=== PATIENT | male | born 1990 | race American Indian/Alaskan Native ===

== ENCOUNTER 2017-08-16 04:04 | Emergency (ER) | payer SELFPAY ==
[2017-08-16 04:11] VITALS: BP 111/82
[2017-08-16] MEDS ORDERED: ATROVENT IH ONE (04:26)
[2017-08-16] MEDS ORDERED: PROVENTIL IH ONE (04:26)
[2017-08-16] MEDS ORDERED: MAGNESIUM SULFATE 1 GM in NACL 0.9% 50 ML IV ONE (04:26)
--- NOTE | 2017-08-16 04:39 | Emergency Department Report ---
ED Asthma HPI - General Chief Complaint: Dyspnea/Respdistress Stated Complaint: NICOL Source: patient, EMS Mode of arrival: Stretcher Limitations: No Limitations - History of Present Illness Initial Comments: 27 year old male with a past medical history asthma presents to the Hospital complaining of shortness of breath and wheezing for the past 3 days. Patient ran out of his home nebulizer medication as well as his inhaler last night. Yesterday gas engine mechanic came to the scene and provided a breathing treatment. Patient felt better and therefore elected not to come to the hospital at that time. Symptoms worsened again today and patient received albuterol 5 mg and Solumderol 125 mg prior to arrival with some improvement. Wheezing persists upon arrival. Patient plays a cough occasional productive of mucus, complains of some mid thoracic pain, and denies fever. - Related Data Previous Rx's Medication Instructions Recorded Last Taken Type ALBUTEROL Inhaler [ProAir HFA 2 puff IH QID PRN #1 inha 08/16/17 Unknown Rx Inhaler] ALBUTEROL NEB's [Proventil 0.083% 2.5 mg IH TID PRN #1 box 08/16/17 Unknown Rx NEBS] predniSONE [Deltasone] 40 mg PO QDAY 5 Days tab 08/16/17 Unknown Rx Allergies Allergy/AdvReac Type Severity Reaction Status Date / Time No Known Allergies Allergy Verified 05/02/15 17:02 ED Review of Systems ROS: Stated complaint: NICOL Other details as noted in HPI Comment: All other systems reviewed and negative ED Past Medical Hx - Past Medical History Hx Asthma: Yes - Social History Smoking Status: Current Every Day Smoker Substance Use Type: None - Medications Home Medications: Home Medications Medication Instructions Recorded Confirmed Last Taken Type ALBUTEROL Inhaler [ProAir HFA 2 puff IH QID PRN #1 inha 08/16/17 Unknown Rx Inhaler] ALBUTEROL NEB's [Proventil 0.083% 2.5 mg IH TID PRN #1 box 08/16/17 Unknown Rx NEBS] predniSONE [Deltasone] 40 mg PO QDAY 5 Days tab 08/16/17 Unknown Rx ED Physical Exam - General Limitations: No Limitations - Other Other exam information: General: No limitations, patient is alert in no acute distress Head exam: Atraumatic, normocephalic Eyes exam: Normal appearance ENT: Moist mucous membrane, normal oropharynx Neck exam: Normal inspection, full range of motion, no meningismus nontender Respiratory exam: Lateral wheezing, no accessory muscle use, no tachypnea Cardiovascular: Normal rate and rhythm Abdomen: Soft, nondistended, and nontender, with normal bowel sounds, no rebound, or guarding Extremity: Full range of motion normal inspection no deformity, no calf tenderness or edema Back: Normal Inspection, full range of motion, no tenderness Neurologic: Alert, oriented x3, cranial nerves intact, no motor or sensory deficit Psychiatric: normal affect, normal mood Skin: Warm, dry, intact ED Course Vital Signs 08/16/17 08/16/17 08/16/17 04:08 04:10 04:37 Temperature 98.2 F Pulse Rate 103 H Pulse Rate [ 92 H Anterior Bilateral Throughout] Respiratory 18 18 Rate Respiratory 18 Rate [Anterior Bilateral Throughout] Blood Pressure 111/82 [Left] O2 Sat by Pulse 98 98 Oximetry 08/16/17 05:45 Temperature Pulse Rate Pulse Rate [ 101 H Anterior Bilateral Throughout] Respiratory Rate Respiratory 18 Rate [Anterior Bilateral Throughout] Blood Pressure [Left] O2 Sat by Pulse Oximetry - Reevaluation(s) Reevaluation #1: 08/16/17 04:58 Magnesium additional albuterol and Xopenex initiated Reevaluation #2: 08/16/17 05:50 pt feeling better nebs and Mag, tolerating walking without difficulty after 1/2 of treatment. Will finish current albuterol 7.5mg/atrovent 1 mg. Pt states he should be ready to go when treatment complete. Prepped for d/c and encouraged to fill his meds prior to going home so he will have them available. ED Medical Decision Making - Lab Data Result diagrams: 08/16/17 04:29 08/16/17 04:29 Lab Results 08/16/17 08/16/17 Range/Units 04:29 04:29 WBC 12.4 H (4.5-11.0) K/mm3 RBC 4.94 (3.65-5.03) M/mm3 Hgb 15.0 (11.8-15.2) gm/dl Hct 44.3 (35.5-45.6) % MCV 90 (84-94) fl MCH 30 (28-32) pg MCHC 34 (32-34) % RDW 13.4 (13.2-15.2) % Plt Count 244 (140-440) K/mm3 Lymph % (Auto) 19.3 (13.4-35.0) % Callaway % (Auto) 14.2 H (0.0-7.3) % Eos % (Auto) 3.8 (0.0-4.3) % Baso % (Auto) 0.6 (0.0-1.8) % Lymph # 2.4 (1.2-5.4) K/mm3 Callaway # 1.8 H (0.0-0.8) K/mm3 Eos # 0.5 H (0.0-0.4) K/mm3 Baso # 0.1 (0.0-0.1) K/mm3 Seg Neutrophils % 62.1 (40.0-70.0) % Seg Neutrophils # 7.7 (1.8-7.7) K/mm3 Sodium 139 (137-145) mmol/L Potassium 4.0 (3.6-5.0) mmol/L Chloride 101.5 (98-107) mmol/L Carbon Dioxide 27 (22-30) mmol/L Anion Gap 15 mmol/L BUN 10 (9-20) mg/dL Creatinine 1.0 (0.8-1.5) mg/dL Estimated GFR > 60 ml/min BUN/Creatinine Ratio 10 % Glucose 101 H (75-100) mg/dL Calcium 8.9 (8.4-10.2) mg/dL - EKG Data -: EKG Interpreted by Nm EKG shows normal: sinus rhythm, axis (qrs 109), QRS complexes (qrsd 106), ST-T waves (no steim/t inv) Rate: normal (91) - EKG Data When compared to previous EKG there are: previous EKG unavailable - Radiology Data Radiology results: report reviewed Read by radiologist: Chest x-ray PA and lateral: Hyperinflation no acute process - Medical Decision Making Acute asthma exacerbation. Improvement with each treatment. Will be discharged , nebs, inhaler, and prednisone. Outpatient follow-up will be encouraged - Differential Diagnosis asthma, bronchitis, pneumothorax, CHF Critical Care Time: No Critical care attestation.: If time is entered above; I have spent that time in minutes in the direct care of this critically ill patient, excluding procedure time. ED Disposition Clinical Impression: Acute asthma exacerbation Disposition: DC-01 TO HOME OR SELFCARE Is pt being admited?: No Does the pt Need Aspirin: No Condition: Stable Instructions: Asthma (ED) Additional Instructions: Take the medication as prescribed. Follow-up with your doctor or the doctor provided. Return if symptoms worsen as indicated by your discharge instructions. Prescriptions: ALBUTEROL Inhaler [ProAir HFA Inhaler] 2 puff IH QID PRN #1 inha PRN Reason: Shortness Of Breath ALBUTEROL NEB's [Proventil 0.083% NEBS] 2.5 mg IH TID PRN #1 box PRN Reason: Wheezing predniSONE [Deltasone] 40 mg PO QDAY 5 Days tab Referrals: PRIMARY CARE, [Primary Care Provider] - 3-5 Days [facility] [Provider Group] - 3-5 Days Time of Disposition: 06:00
[2017-08-16 04:41] LABS: Basophils # (Auto) 0.1 K/mm3 (0.0-0.1); Basophils % (Auto) 0.6 % (0.0-1.8); Eosinophils # (Auto) 0.5 K/mm3 (0.0-0.4); Eosinophils % (Auto) 3.8 % (0.0-4.3); Hematocrit 44.3 % (35.5-45.6); Lymphocytes # (Auto) 2.4 K/mm3 (1.2-5.4); Lymphocytes % (Auto) 19.3 % (13.4-35.0); Mean Corpuscular HGB Conc 34 % (32-34); Mean Corpuscular Hemoglobin 30 pg (28-32); Mean Corpuscular Volume 90 fl (84-94); Monocytes # (Auto) 1.8 K/mm3 (0.0-0.8); Monocytes % (Auto) 14.2 % (0.0-7.3); Platelet Count 244 K/mm3 (140-440); Red Blood Count 4.94 M/mm3 (3.65-5.03); Red Cell Distribution Width 13.4 % (13.2-15.2)
[2017-08-16 05:04] LABS: BUN/Creatinine Ratio 10; Blood Urea Nitrogen 10 mg/dL (9-20); Calcium 8.9 mg/dL (8.4-10.2); Hemolysis Index 2
--- NOTE | 2017-08-16 06:04 | XRay Report ---
FINAL REPORT EXAM: XR CHEST ROUTINE 2V HISTORY: Shortness of breath TECHNIQUE: PA and lateral views of the chest were submitted. FINDINGS: The lungs are hyperinflated. There are no localized infiltrates or congestion. Pleural fluid is not seen. The skeletal structures reveal a mild dextroscoliosis of the lower thoracic spine. IMPRESSION: Hyperinflation. No acute process in the chest.
== END 2017-08-16 06:40 | disposition home or self-care (01) ==
LOC: ED 04:04
DX: J45.901 Unspecified asthma with (acute) exacerbation (principal); F17.200 Nicotine dependence, unspecified, uncomplicated
CPT/HCPCS: 36415; 71046; 80048; 85025; 93005; 93010; 94644; 96365; 99284; J3475

== ENCOUNTER 2018-06-05 12:42 | Emergency (ER) | payer OTHER ==
[2018-06-05] MEDS ORDERED: DUONEB *Not for PRN Use IH ONE (13:01)
--- NOTE | 2018-06-05 13:04 | Emergency Department Report ---
ED Asthma HPI - General Chief Complaint: Adult Asthma Stated Complaint: ASTHMA Time Seen by Provider: 06/05/18 12:58 Source: patient, EMS Mode of arrival: Stretcher Limitations: No Limitations - History of Present Illness Initial Comments: 28-year-old male with a past medical history of asthma versus a hospital complaining of shortness of breath likely triggered by seasonal allergies. Patient did not have an inhaler. He received oxygen in route to the hospital. He states that his chest feels heavy. He complains of a mild cough without fever. Complains of right trapezius and parascapular pain 1 year. He denies a history of previous intubations and does not have a primary care doctor. - Related Data Previous Rx's Medication Instructions Recorded Last Taken Type predniSONE [Deltasone] 40 mg PO QDAY 5 Days tab 02/23/18 Unknown Rx ALBUTEROL Inhaler (OR & NICU) 2 puff IH QID PRN #1 inha 06/05/18 Unknown Rx [ProAir HFA Inhaler] ALBUTEROL NEB's [Proventil 0.083% 2.5 mg IH TID PRN #1 box 06/05/18 Unknown Rx NEBS] Cetirizine HCl/Pseudoephedrine 1 each PO BID PRN #30 tab.er.12h 06/05/18 Unknown Rx [Zyrtec-D Tablet] Allergies Allergy/AdvReac Type Severity Reaction Status Date / Time No Known Allergies Allergy Verified 05/02/15 17:02 ED Review of Systems ROS: Stated complaint: ASTHMA Other details as noted in HPI Comment: All other systems reviewed and negative ED Past Medical Hx - Past Medical History Previous Medical History?: Yes Hx Asthma: Yes - Surgical History Past Surgical History?: No - Social History Smoking Status: Current Every Day Smoker Substance Use Type: Alcohol - Medications Home Medications: Home Medications Medication Instructions Recorded Confirmed Last Taken Type predniSONE [Deltasone] 40 mg PO QDAY 5 Days tab 02/23/18 Unknown Rx ALBUTEROL Inhaler (OR & NICU) 2 puff IH QID PRN #1 inha 06/05/18 Unknown Rx [ProAir HFA Inhaler] ALBUTEROL NEB's [Proventil 0.083% 2.5 mg IH TID PRN #1 box 06/05/18 Unknown Rx NEBS] Cetirizine HCl/Pseudoephedrine 1 each PO BID PRN #30 tab.er.12h 06/05/18 Unknown Rx [Zyrtec-D Tablet] ED Physical Exam - General Limitations: No Limitations - Other Other exam information: General: No limitations, patient is alert in no acute distress Head exam: Atraumatic, normocephalic Eyes exam: Normal appearance, pupils equal reactive to light, extraocular movements intact ENT: Moist mucous membrane, normal oropharynx Neck exam: Normal inspection, full range of motion, no meningismus nontender. Right trapezius muscle tenderness Respiratory exam: Clear to auscultation bilateral, no wheezes, rales, crackles Cardiovascular: Normal rate and rhythm, normal heart sounds Abdomen: Soft, nondistended, and nontender, with normal bowel sounds, no rebound, or guarding Extremity: Full range of motion normal inspection no deformity, no calf tenderness or edema Back: Normal Inspection, full range of motion, no tenderness Neurologic: Alert, oriented x3, cranial nerves intact, no motor or sensory deficit Psychiatric: normal affect, normal mood Skin: Warm, dry, intact ED Course Vital Signs 06/05/18 06/05/18 06/05/18 12:45 12:58 13:15 Temperature 98.1 F Pulse Rate 96 H Pulse Rate [ 80 Anterior Bilateral Throughout] Respiratory 13 13 Rate Respiratory 18 Rate [Anterior Bilateral Throughout] Blood Pressure 114/65 Blood Pressure 114/65 [Left] O2 Sat by Pulse 97 97 Oximetry 06/05/18 06/05/18 13:28 14:35 Temperature Pulse Rate 87 Pulse Rate [ 81 Anterior Bilateral Throughout] Respiratory 13 Rate Respiratory 18 Rate [Anterior Bilateral Throughout] Blood Pressure Blood Pressure 108/67 [Left] O2 Sat by Pulse 95 Oximetry ED Medical Decision Making - Radiology Data Radiology results: report reviewed PROCEDURE: XR CHEST ROUTINE 2V TECHNIQUE: PA and lateral chest HISTORY: sob, right trapezius pain COMPARISONS: Chest x-ray August 16, 2017 FINDINGS: Trachea midline. Heart size normal. No pneumothorax. No effusion. No acute airspace disease No acute bony abnormality IMPRESSION: No acute pulmonary disease. No significant interval change.. - Medical Decision Making pt given a duoneb no distress cxr neg will d/c with meds - Differential Diagnosis asthma, allergies, costochondritis, muscle strain, pneumothorax Critical Care Time: No Critical care attestation.: If time is entered above; I have spent that time in minutes in the direct care of this critically ill patient, excluding procedure time. ED Disposition Clinical Impression: Asthma exacerbation, Seasonal allergies Disposition: DC- TO HOME OR SELFCARE Is pt being admited?: No Does the pt Need Aspirin: No Condition: Stable Instructions: Asthma (ED), Allergic Rhinitis (ED) Additional Instructions: Take the medication as prescribed. Follow up with your doctor or the clinic/doctor provided. Return if symptoms worsen as indicated by your discharge instructions Prescriptions: ALBUTEROL Inhaler (OR & NICU) [ProAir HFA Inhaler] 2 puff IH QID PRN #1 inha PRN Reason: Shortness Of Breath ALBUTEROL NEB's [Proventil 0.083% NEBS] 2.5 mg IH TID PRN #1 box PRN Reason: Wheezing Cetirizine HCl/Pseudoephedrine [Zyrtec-D Tablet] 1 each PO BID PRN #30 tab.er.12h PRN Reason: Allergy Symptoms Referrals: [facility] [Provider Group] - 3-5 Days Time of Disposition: 15:06
[2018-06-05 14:36] VITALS: BP 108/67
--- NOTE | 2018-06-05 15:01 | XRay Report ---
PROCEDURE: XR CHEST ROUTINE 2V TECHNIQUE: PA and lateral chest HISTORY: sob, right trapezius pain COMPARISONS: Chest x-ray August 16, 2017 FINDINGS: Trachea midline. Heart size normal. No pneumothorax. No effusion. No acute airspace disease No acute bony abnormality IMPRESSION: No acute pulmonary disease. No significant interval change.. This document is electronically signed by Ziggy Law MD., June 05 2018 02:59:27 PM ET
== END 2018-06-05 15:23 | disposition home or self-care (01) ==
LOC: ED 12:42
DX: J45.901 Unspecified asthma with (acute) exacerbation (principal); J30.2 Other seasonal allergic rhinitis; F17.200 Nicotine dependence, unspecified, uncomplicated
CPT/HCPCS: 71046; 94640

== ENCOUNTER 2018-07-03 08:42 | Emergency (ER) | payer OTHER ==
[2018-07-03] MEDS ORDERED: DUONEB *Not for PRN Use IH ONE (11:21)
[2018-07-03] MEDS ORDERED: TYLENOL PO ONE (11:22)
[2018-07-03] MEDS ORDERED: CLARITIN PO ONE (11:22)
--- NOTE | 2018-07-03 11:45 | Emergency Department Report ---
HPI - General Chief Complaint: Headache Time Seen by Provider: 07/03/18 11:14 - HPI HPI: 24-year-old -[place] male presents to the emergency department with complaint of a headache, dizziness, lightheadedness and some nasal congestion. The patient says that [place] side [place] and could not get in touch with his fiance and therefore spent the evening walking trying to get home. Earlier this morning he developed a "migraine" that he describes as a throbbing headache and felt dizzy/lightheaded. He also says that he has some nasal congestion and thinks that the pollen affected his asthma. He has not taken anything for her symptoms prior to presentation. No recent travel or sick contacts at home. He denies having a primary care physician. ED Past Medical Hx - Past Medical History Hx Asthma: Yes - Social History Smoking Status: Current Every Day Smoker Substance Use Type: Alcohol, Marijuana - Medications Home Medications: Home Medications Medication Instructions Recorded Confirmed Last Taken Type predniSONE [Deltasone] 40 mg PO QDAY 5 Days tab 02/23/18 Unknown Rx Cetirizine HCl/Pseudoephedrine 1 each PO BID PRN #30 tab.er.12h 06/05/18 Unknown Rx [Zyrtec-D Tablet] ALBUTEROL Inhaler (OR & NICU) 2 puff IH QID PRN #1 inha 07/03/18 Unknown Rx [ProAir HFA Inhaler] ALBUTEROL NEB's [Proventil 0.083% 2.5 mg IH TID PRN #1 box 07/03/18 Unknown Rx NEBS] Fluticasone [Flonase] 1 spray NS QDAY #1 bottle 07/03/18 Unknown Rx Loratadine [Claritin] 10 mg PO DAILY #10 tablet 07/03/18 Unknown Rx ED Review of Systems ROS: Stated complaint: HEADACHE Other details as noted in HPI Comment: All other systems reviewed and negative Constitutional: denies: chills, fever Eyes: denies: eye pain, vision change ENT: congestion. denies: throat pain Respiratory: cough. denies: shortness of breath Cardiovascular: denies: chest pain, edema Gastrointestinal: denies: abdominal pain, vomiting Genitourinary: denies: dysuria, discharge Musculoskeletal: denies: back pain, arthralgia Skin: denies: rash, lesions Neurological: headache. denies: numbness, paresthesias, other (dizzy) Physical Exam - Physical Exam Vital Signs: Vital Signs 07/03/18 09:24 Temperature 98.3 F Pulse Rate 61 Respiratory 22 Rate Blood Pressure 115/77 Blood Pressure 115/77 [Right] O2 Sat by Pulse 98 Oximetry Physical Exam: GENERAL: The patient is well-developed well-nourished. HENT: Normocephalic. Atraumatic. Patient has moist mucous membranes. EYES: Extraocular motions are intact. Pupils equal reactive to light bilaterally. NECK: Supple. Trachea is midline. CHEST/LUNGS: Mild expiratory wheeze. No tachypnea or accessory muscle use. There is no respiratory distress noted. HEART/CARDIOVASCULAR: Regular. There is no tachycardia. There is no murmur. ABDOMEN: Abdomen is soft, nontender. Patient has normal bowel sounds. There is no abdominal distention. SKIN: Skin is warm and dry. NEURO: The patient is awake, alert, and oriented. The patient is cooperative. The patient has no focal neurologic deficits. The patient has normal speech. Cranial nerves II through XII grossly intact. MUSCULOSKELETAL: There is no tenderness or deformity. There is no limitation range of motion. There is no evidence of acute injury. ED Course Vital Signs 07/03/18 09:24 Temperature 98.3 F Pulse Rate 61 Respiratory 22 Rate Blood Pressure 115/77 Blood Pressure 115/77 [Right] O2 Sat by Pulse 98 Oximetry ED Medical Decision Making - Lab Data Result diagrams: 07/03/18 11:23 07/03/18 11:23 - EKG Data -: EKG Interpreted by Me EKG shows normal: sinus rhythm, axis, intervals, QRS complexes (early repolarization), ST-T waves Rate: normal - EKG Data When compared to previous EKG there are: previous EKG unavailable Interpretation: normal EKG - Radiology Data Radiology results: report reviewed, image reviewed interpreted by me: Chest x-ray does not show any acute process. There are no pleural effusions, obvious pneumonia and there is no pneumothorax.EXAM: CT HEAD/BRAIN WO CON HISTORY: headache TECHNIQUE: Spiral axial CT images are obtained through the brain without the administration of intravenous contrast. COMPARISON: None available. FINDINGS: The centrum semiovale, basal ganglia, cerebellum, and brainstem are grossly unremarkable for a noncontrast CT scan. There is no acute intracranial hemorrhage, discernible acute infarction, mass lesion, midline shift, or hydrocephalus seen. No extra-axial mass or abnormal fluid collection i s seen. The calvarium is intact. The partially imaged paranasal sinuses, middle ear cavities, and mastoid air cells are clear. IMPRESSION: 1. No intracranial hemorrhage, discernible acute infarction, mass lesions, midline shift, mass effect or hydrocephalus seen. 2. Consider follow-up evaluation with MRI for further assessment as clinically warranted. This document is electronically signed by Matthieu Guerra MD., Jul 03 2018 11:51:11 AM ET Transcribed By: [facility]SM Dictated By: MATTHIEU GUERRA Electronically Authenticated By: MATTHIEU GUERRA Signed Date/Time: 07/03/18 1153 - Medical Decision Making Patient presented with a complaint of a migraine headache and some wheezing, coughing and exacerbation of his asthma. On examination he does not have any focal, motor or sensory deficits and his cranial nerves are intact. A CT scan of the head without contrast was done that does not show any bleed, shift, mass, ischemia, or any other acute process. Chest x-ray does not show any focal consolidation, pneumothorax, pneumonia, pleural effusions, or any other acute process. His labs have been unremarkable. He was given Tylenol for his headache, Decadron for mild expiratory wheezing, and a breathing treatment and some Claritin. He was seen ambulatory in the emergency department and appears stable. Vital signs stable throughout his ED course. He appears safe for discharge home at this time and has been instructed to follow-up with a primary care physician, but to return to the emergency Department with any worsening of his symptoms or any acute distress. - Differential Diagnosis migraine headache, tension headache, asthma, pneumonia Critical Care Time: No Critical care attestation.: If time is entered above; I have spent that time in minutes in the direct care of this critically ill patient, excluding procedure time. ED Disposition Clinical Impression: Lightheaded, Nasal congestion Asthma exacerbation Qualifiers: Asthma severity: unspecified severity Asthma persistence: unspecified Qualified Code(s): J45.901 - Unspecified asthma with (acute) exacerbation Disposition: DC-01 TO HOME OR SELFCARE Is pt being admited?: No Condition: Stable Instructions: Asthma (ED), Lightheadedness (ED), Cold Symptoms (ED) Additional Instructions: Please follow up with a primary care physician in the next few days. Return to the emergency Department with any worsening of your symptoms or any acute distress. Prescriptions: Loratadine [Claritin] 10 mg PO DAILY #10 tablet Fluticasone [Flonase] 1 spray NS QDAY #1 bottle ALBUTEROL Inhaler (OR & NICU) [ProAir HFA Inhaler] 2 puff IH QID PRN #1 inha PRN Reason: Shortness Of Breath ALBUTEROL NEB's [Proventil 0.083% NEBS] 2.5 mg IH TID PRN #1 box PRN Reason: Wheezing Referrals: [facility] [Outside] - 3-5 Days Time of Disposition: 14:46
--- NOTE | 2018-07-03 11:53 | Cat Scan Report ---
EXAM: CT HEAD/BRAIN WO CON HISTORY: headache TECHNIQUE: Spiral axial CT images are obtained through the brain without the administration of intra venous contrast. COMPARISON: None available. FINDINGS: The centrum semiovale, basal ganglia, cerebellum, and brainstem are grossly unremarkable for a noncon trast CT scan. There is no acute intracranial hemorrhage, discernible acute infarction, mass lesion, midline shift, or hydrocephalus seen. No extra-axial mass or abnormal fluid collection is seen. The calvarium is intact. The partially imaged paranasal sinuses, middle ear cavities, and mastoid ai r cells are clear. IMPRESSION: 1. No intracranial hemorrhage, discernible acute infarction, mass lesions, midline shift, mass effe ct or hydrocephalus seen. 2. Consider follow-up evaluation with MRI for further assessment as clinically warranted. This document is electronically signed by Mitul Morel MD., Jul 03 2018 11:51:11 AM ET
[2018-07-03 11:58] LABS: Basophils # (Auto) 0.1 K/mm3 (0.0-0.1); Basophils % (Auto) 0.6 % (0.0-1.8); Eosinophils # (Auto) 0.3 K/mm3 (0.0-0.4); Eosinophils % (Auto) 1.7 % (0.0-4.3); Hematocrit 46.8 % (35.5-45.6); Hemoglobin 15.8 gm/dl (11.8-15.2); Lymphocytes % (Auto) 12.5 % (13.4-35.0); Mean Corpuscular HGB Conc 34 % (32-34); Mean Corpuscular Volume 91 fl (84-94); Monocytes # (Auto) 1.3 K/mm3 (0.0-0.8); Monocytes % (Auto) 8.2 % (0.0-7.3); Platelet Count 300 K/mm3 (140-440); Red Blood Count 5.13 M/mm3 (3.65-5.03); Red Cell Distribution Width 13.8 % (13.2-15.2)
--- NOTE | 2018-07-03 12:17 | XRay Report ---
PROCEDURE: XR CHEST ROUTINE 2V TECHNIQUE: Frontal and lateral views of the chest HISTORY: cough COMPARISONS: 06/05/2018 FINDINGS: There is no visible pulmonary consolidation. No radiographically visible pneumothorax. No evidence of pleural effusion. Cardiac silhouette size is normal without vascular congestion. No visible acute displaced fracture in the regional skeleton. IMPRESSION: No acute cardiopulmonary disease in the visualized chest. This document is electronically signed by Jad Navarro MD., Jul 03 2018 12:15:36 PM ET
[2018-07-03 12:19] LABS: BUN/Creatinine Ratio 9; Blood Urea Nitrogen 10 mg/dL (9-20); Calcium 9.3 mg/dL (8.4-10.2); Hemolysis Index 10
[2018-07-03] MEDS ORDERED: DECADRON PO ONE (14:37)
[2018-07-03 15:20] VITALS: BP 126/47
== END 2018-07-03 15:21 | disposition home or self-care (01) ==
LOC: ED 08:42
DX: J45.901 Unspecified asthma with (acute) exacerbation (principal); R42 Dizziness and giddiness; F17.200 Nicotine dependence, unspecified, uncomplicated; F12.10 Cannabis abuse, uncomplicated; Z79.899 Other long term (current) drug therapy
CPT/HCPCS: 36415; 70450; 71046; 80048; 84443; 85025; 93005; 93010; 94640; 99284; J8540